=== PATIENT | female | born 1990 | race Caucasian/White ===

== ENCOUNTER 2018-03-22 21:12 | Emergency (ER) | payer BC ==
[2018-03-22] MEDS: METOCLOPRAMIDE 10 MG TAB PO (22:29)
[2018-03-22] MEDS: ACETAMINOPHEN 325 MG TAB PO (22:29)
[2018-03-22 22:33] LABS: URINE BLOOD (Dip) POC Negative (NEGATIVE); URINE GLUCOSE (Dip) POC Negative (NEGATIVE); URINE KETONES (Dip) POC Negative (NEGATIVE); URINE LEUKOCYTE EST (Dip) POC Negative (NEGATIVE); URINE NITRITE (Dip) POC Negative (NEGATIVE); URINE TOTAL PROTEIN POC Negative (NEGATIVE)
[2018-03-22 22:45] LABS: ADD UMIC NO; UR ASCORBIC ACID 40 mg/dL (NEGATIVE); UR BACTERIA FEW /HPF (NONE SEEN); UR BILIRUBIN (Dip) NEGATIVE (NEGATIVE); UR BLOOD (Dip) NEGATIVE (NEGATIVE); UR CLARITY SLIGHTLY CLOUDY (CLEAR); UR COLOR YELLOW (YELLOW); UR GLUCOSE (Dip) NEGATIVE (NEGATIVE); UR KETONES (Dip) NEGATIVE (NEGATIVE); UR LEUKOCYTE ESTERASE (Dip) NEGATIVE Leu/ul (NEGATIVE); UR MUCUS MODERATE /HPF (NONE SEEN); UR NITRITE (Dip) NEGATIVE (NEGATIVE); UR RBC 1 /HPF (0-5); UR SPECIFIC GRAVITY (Dip) 1.017 (1.003-1.030); UR TOTAL PROTEIN (Dip) NEGATIVE (NEGATIVE); UR UROBILINOGEN (Dip) NEGATIVE (NEGATIVE); UR WBC 0 /HPF (0-5)
== END 2018-03-23 00:10 | disposition left against medical advice (07) ==
LOC: FTE 03-23 00:10
DX: O99.89 Other specified diseases and conditions complicating pregnancy, childbirth and the puerperium (principal); R51 Headache; Z3A.11 11 weeks gestation of pregnancy
CPT/HCPCS: 81001; 81003; 81025; 87086; 99283

== ENCOUNTER 2018-05-04 02:39 | Emergency (ER) | payer SELFPAY, BC | END 2018-05-04 02:49 | disposition left against medical advice (07) | LOC: E/R 02:39 | DX: Z53.21 Procedure and treatment not carried out due to patient leaving prior to being seen by health care provider (principal) ==

== ENCOUNTER 2018-05-04 03:38 | Emergency (ER) | payer BC ==
[2018-05-04] MEDS: ACETAMINOPHEN 500 MG TAB PO (04:43)
[2018-05-04 04:54] LABS: ADD UMIC YES; UR AMORPHOUS CRYSTAL FEW /HPF (NONE SEEN); UR ASCORBIC ACID NEGATIVE (NEGATIVE); UR BACTERIA FEW /HPF (NONE SEEN); UR BILIRUBIN (Dip) NEGATIVE (NEGATIVE); UR BLOOD (Dip) NEGATIVE (NEGATIVE); UR CLARITY CLOUDY (CLEAR); UR COLOR YELLOW (YELLOW); UR GLUCOSE (Dip) NEGATIVE (NEGATIVE); UR KETONES (Dip) NEGATIVE (NEGATIVE); UR LEUKOCYTE ESTERASE (Dip) 1+ Leu/ul (NEGATIVE); UR MUCUS FEW /HPF (NONE SEEN); UR NITRITE (Dip) NEGATIVE (NEGATIVE); UR RBC 6 /HPF (0-5); UR SPECIFIC GRAVITY (Dip) 1.025 (1.003-1.030); UR SQUAMOUS EPITHELIAL CELL FEW /HPF (FEW); UR TOTAL PROTEIN (Dip) NEGATIVE (NEGATIVE); UR UROBILINOGEN (Dip) NEGATIVE (NEGATIVE); UR WBC 6 /HPF (0-5)
== END 2018-05-04 05:10 | disposition home or self-care (01) ==
LOC: FTE 03:38
DX: O23.12 Infections of bladder in pregnancy, second trimester (principal); R10.2 Pelvic and perineal pain; Z3A.17 17 weeks gestation of pregnancy
CPT/HCPCS: 76805; 81001; 99284-25

== ENCOUNTER 2018-09-13 18:22 | Inpatient (IN) | payer BC ==
[2018-09-13] MEDS ORDERED: ACETAMINOPHEN 325 MG TAB PO (19:00)
[2018-09-13 19:18] LABS: ADD MAN DIFF? NO
[2018-09-13 19:21] LABS: ABNORMAL IP MESSAGE 1; BASOPHILS % 0.2 % (0.0-2.0); EOSINOPHILS % 0.1 % (0.0-7.0); HEMATOCRIT 32.9 % (37.0-47.0); HEMOGLOBIN 10.7 g/dl (12.0-16.0); LYMPHOCYTES # 0.4 10^3/ul (0.8-2.9); LYMPHOCYTES % 3.7 % (15.0-51.0); MEAN CORPUSCULAR HEMOGLOBIN 28.1 pg (29.0-33.0); MEAN CORPUSCULAR HGB CONC 32.5 g/dl (32.0-37.0); MEAN CORPUSCULAR VOLUME 86.4 fl (82.0-101.0); MEAN PLATELET VOLUME 14.2 fl (7.4-10.4); MONOCYTE # 0.5 10^3/ul (0.3-0.9); MONOCYTES % 4.4 % (0.0-11.0); NEUTROPHIL # 9.6 10^3/ul (1.6-7.5); NEUTROPHILS % 90.8 % (39.0-77.0); PLATELET COUNT 133 10^3/UL (140-415); RED BLOOD COUNT 3.81 10^6/ul (4.20-5.40); RED CELL DISTRIBUTION WIDTH 13.2 % (11.5-14.5)
[2018-09-13 19:21] LABS: WHITE BLOOD COUNT 10.6 10^3/ul (4.8-10.8)
[2018-09-13] MEDS: LACTATED RINGER'S 1,000 ML IV ×2 (19:32→20:10)
[2018-09-13] MEDS: TERBUTALINE 1 MG/ML INJ SC (19:34)
[2018-09-13] MEDS: ACETAMINOPHEN 325 MG TAB PO (19:37)
[2018-09-13 19:40] LABS: ALANINE AMINOTRANSFERASE 46 IU/L (13-69); ALBUMIN 3.5 g/dl (3.3-4.9); ALKALINE PHOSPHATASE 133 IU/L (42-121); ASPARTATE AMINO TRANSFERASE 249 IU/L (15-46); BILIRUBIN,INDIRECT 0.3 mg/dl (0-1.1); BILIRUBIN,TOTAL 0.3 mg/dl (0.2-1.3); TOTAL PROTEIN 6.9 g/dl (6.1-8.1)
[2018-09-13 19:50] LABS: POSITIVE DIFF @See below
[2018-09-13] MEDS: URSODIOL 300 MG CAP PO (22:43)
[2018-09-13] MEDS: CEPASTAT LOZENGE MT (22:45)
[2018-09-13] MEDS: BETAMET NA PHOS/AC(6 MG/ML) 2 ML INJ SYG IM (22:46)
[2018-09-13 23:21] LABS: ADD UMIC YES; UR ASCORBIC ACID NEGATIVE (NEGATIVE); UR BILIRUBIN (Dip) NEGATIVE (NEGATIVE); UR BLOOD (Dip) NEGATIVE (NEGATIVE); UR CLARITY CLEAR (CLEAR); UR COLOR AMBER (YELLOW); UR GLUCOSE (Dip) NEGATIVE (NEGATIVE); UR KETONES (Dip) 2+ mg/dL (NEGATIVE); UR LEUKOCYTE ESTERASE (Dip) NEGATIVE Leu/ul (NEGATIVE); UR MUCUS MODERATE /HPF (NONE SEEN); UR NITRITE (Dip) NEGATIVE (NEGATIVE); UR RBC 0 /HPF (0-5); UR SPECIFIC GRAVITY (Dip) 1.028 (1.003-1.030); UR SQUAMOUS EPITHELIAL CELL FEW /HPF (FEW); UR TOTAL PROTEIN (Dip) 1+ mg/dl (NEGATIVE); UR UROBILINOGEN (Dip) 1+ mg/dL (NEGATIVE); UR WBC 1 /HPF (0-5)
[2018-09-13] MEDS: ACETAMINOPHEN 500 MG TAB PO (23:21)
[2018-09-14] MEDS: OSELTAMIVIR 75 MG CAP PO ×3 (00:35→20:57)
[2018-09-14] MEDS: CEPASTAT LOZENGE MT ×4 (01:55→23:26)
[2018-09-14] MEDS: LACTATED RINGER'S 1,000 ML IV ×5 (01:56→20:45)
[2018-09-14] MEDS: TERBUTALINE 1 MG/ML INJ SC (03:20)
[2018-09-14] MEDS: ACETAMINOPHEN 500 MG TAB PO ×2 (06:02→11:21)
[2018-09-14] MEDS ORDERED: PENICILLIN G K 2,500,000 UNITS in DEXTROSE 5% 50 ML IVPB (06:30)
[2018-09-14] MEDS ORDERED: PENICILLIN G K 5,000,000 UNITS in DEXTROSE 5% 100 ML IVPB (06:30)
[2018-09-14] MEDS ORDERED: CEFAZOLIN 1 GM INJ (07:00)
[2018-09-14 07:24] LABS: ADD MAN DIFF? NO
[2018-09-14 07:26] LABS: ABNORMAL IP MESSAGE 1; BASOPHILS % 0.1 % (0.0-2.0); HEMATOCRIT 26.6 % (37.0-47.0); HEMOGLOBIN 8.7 g/dl (12.0-16.0); LYMPHOCYTES # 0.2 10^3/ul (0.8-2.9); LYMPHOCYTES % 2.8 % (15.0-51.0); MEAN CORPUSCULAR HEMOGLOBIN 28.4 pg (29.0-33.0); MEAN CORPUSCULAR HGB CONC 32.7 g/dl (32.0-37.0); MEAN CORPUSCULAR VOLUME 86.9 fl (82.0-101.0); MEAN PLATELET VOLUME 13.9 fl (7.4-10.4); MONOCYTE # 0.3 10^3/ul (0.3-0.9); MONOCYTES % 3.4 % (0.0-11.0); NEUTROPHIL # 7.3 10^3/ul (1.6-7.5); NEUTROPHILS % 92.7 % (39.0-77.0); PLATELET COUNT 107 10^3/UL (140-415); RED BLOOD COUNT 3.06 10^6/ul (4.20-5.40); RED CELL DISTRIBUTION WIDTH 13.5 % (11.5-14.5)
[2018-09-14 07:26] LABS: WHITE BLOOD COUNT 7.8 10^3/ul (4.8-10.8)
[2018-09-14 07:30] LABS: POSITIVE DIFF @See below
[2018-09-14 07:46] LABS: ALANINE AMINOTRANSFERASE 41 IU/L (13-69); ALBUMIN 2.8 g/dl (3.3-4.9); ALBUMIN/GLOBULIN RATIO 0.93; ALKALINE PHOSPHATASE 129 IU/L (42-121); ANION GAP 10 (5-13); ASPARTATE AMINO TRANSFERASE 179 IU/L (15-46); BILIRUBIN,INDIRECT 0.1 mg/dl (0-1.1); BILIRUBIN,TOTAL 0.1 mg/dl (0.2-1.3); BLOOD UREA NITROGEN 6 mg/dl (7-20); CALCIUM 8.5 mg/dl (8.4-10.2); CARBON DIOXIDE 18 mmol/L (21-31); CHLORIDE 109 mmol/L (97-110); CREATININE 0.37 mg/dl (0.44-1.00); Estimated GFR > 60 mL/min (>60); GLUCOSE 119 mg/dl (70-220); SODIUM 137 mmol/L (135-144); TOTAL PROTEIN 5.8 g/dl (6.1-8.1); URIC ACID 5.9 mg/dl (3.1-7.9)
[2018-09-14] MEDS: URSODIOL 300 MG CAP PO ×2 (08:26→13:00)
[2018-09-14] MEDS: FERROUS SULFATE (EC) 325 MG TAB PO (08:26)
[2018-09-14] MEDS: PRENATAL VITAMIN PO (08:27)
[2018-09-14 09:42] LABS: ADD UMIC YES; UR ASCORBIC ACID NEGATIVE (NEGATIVE); UR BACTERIA FEW /HPF (NONE SEEN); UR BILIRUBIN (Dip) NEGATIVE (NEGATIVE); UR BLOOD (Dip) 1+ mg/dL (NEGATIVE); UR CLARITY CLEAR (CLEAR); UR COLOR YELLOW (YELLOW); UR GLUCOSE (Dip) NEGATIVE (NEGATIVE); UR KETONES (Dip) 2+ mg/dL (NEGATIVE); UR LEUKOCYTE ESTERASE (Dip) NEGATIVE Leu/ul (NEGATIVE); UR NITRITE (Dip) NEGATIVE (NEGATIVE); UR RBC 1 /HPF (0-5); UR TOTAL PROTEIN (Dip) NEGATIVE (NEGATIVE); UR UROBILINOGEN (Dip) NEGATIVE (NEGATIVE); UR WBC 1 /HPF (0-5)
[2018-09-14 11:45] LABS: INR 0.99; PROTIME 13.2 Sec (11.9-14.9)
[2018-09-14 11:46] LABS: PARTIAL THROMBOPLASTIN TIME 30.3 Sec (23.0-35.0)
[2018-09-14] MEDS ORDERED: AMPICILLIN 2 GM/NS (PMX) 100 ML (11:53)
[2018-09-14] MEDS: AMPICILLIN 2 GM/NS (PMX) 100 ML IV (12:00)
[2018-09-14] MEDS ORDERED: OXYCODONE/ASPIRIN (4.88/325) TAB PO (13:00)
[2018-09-14] MEDS ORDERED: BUTORPHANOL 1 MG INJ IV (13:00)
[2018-09-14] MEDS ORDERED: CARBOPROST 250 MCG INJ IM ×3 (13:00→17:30)
[2018-09-14] MEDS ORDERED: OXYTOCIN 30 UNITS/LR 500 ML IV ×4 (13:00→17:30)
[2018-09-14] MEDS ORDERED: BUTORPHANOL 2 MG INJ IV (13:00)
[2018-09-14] MEDS ORDERED: LIDOCAINE 1% (MPF) 30 ML INJ INJ (13:00)
[2018-09-14] MEDS ORDERED: MISOPROSTOL 200 MCG TAB PR ×3 (13:00→17:30)
[2018-09-14] MEDS ORDERED: METHYLERGONOVINE 0.2 MG INJ IM ×3 (13:00→17:30)
[2018-09-14] MEDS ORDERED: IBUPROFEN 600 MG TAB PO (13:00)
[2018-09-14] MEDS ORDERED: FENTAnyl 2MCG/ML-ROPIV 0.2% 100 ML (13:35)
[2018-09-14 13:44] LABS: HEPATITIS B SURFACE ANTIGEN NEGATIVE (NEGATIVE)
[2018-09-14] MEDS ORDERED: NALOXONE (0.4 MG/ML) INJ IV ×2 (14:00→19:00)
[2018-09-14] MEDS ORDERED: FENTAnyl 2MCG/ML-ROPIV 0.2% 100 ML BAG EPI (14:00)
[2018-09-14] MEDS: OXYTOCIN 30 UNITS/LR 500 ML IV ×3 (14:02→23:17)
[2018-09-14 15:17] LABS: RAPID PLASMA REAGIN NONREACTIVE (NR)
[2018-09-14] MEDS: AMPICILLIN 1 GM/NS (PMX) 50 ML IV (16:35)
[2018-09-14] MEDS ORDERED: ACETAMINOPHEN 650 MG SUPP PR (16:38)
[2018-09-14] MEDS: ACETAMINOPHEN 650 MG SUPP PR (16:39)
[2018-09-14] MEDS ORDERED: NACL 0.9% 3 ML SYG IV (17:30)
[2018-09-14] MEDS ORDERED: KETOROLAC 30 MG INJ IV ×2 (17:30→19:00)
[2018-09-14] MEDS ORDERED: LIDOCAINE 2% (SDV) 5 ML INJ (17:53)
[2018-09-14] MEDS ORDERED: AZITHROMYCIN 500MG/NS (PMX) 250 ML (17:59)
[2018-09-14] MEDS ORDERED: ONDANSETRON 4 MG INJ (18:03)
[2018-09-14] MEDS ORDERED: METOCLOPRAMIDE 10 MG INJ ×2 (18:04→18:35)
[2018-09-14] MEDS ORDERED: morphine SULFATE/PF (10 MG/10 ML) INJ (18:17)
[2018-09-14] MEDS ORDERED: OXYTOCIN 10 UNIT INJ (18:19)
[2018-09-14] MEDS ORDERED: MIDAZOLAM 1 MG/ML 2 ML INJ ×2 (18:23→18:33)
[2018-09-14] MEDS ORDERED: LACTATED RINGER'S 1,000 ML IV (18:36)
[2018-09-14] MEDS ORDERED: KETOROLAC 30 MG INJ (18:52)
[2018-09-14] MEDS ORDERED: FENTAnyl 50 MCG/ML VIAL (18:54)
[2018-09-14] MEDS ORDERED: HYDROmorphONE 0.5 MG/0.5 ML SYG IV (19:00)
[2018-09-14] MEDS ORDERED: DIPHENHYDRAMINE 50 MG INJ IV ×2 (19:00)
[2018-09-14] MEDS ORDERED: MIDAZOLAM 1 MG/ML 2 ML INJ IV (19:00)
[2018-09-14] MEDS ORDERED: NALBUPHINE HCL (10 MG/1 ML) INJ IV (19:00)
[2018-09-14] MEDS ORDERED: ONDANSETRON 4 MG INJ IV ×2 (19:00)
[2018-09-14] MEDS ORDERED: EPHEDrine SULFATE 50 MG/5 ML SYG IV (19:00)
[2018-09-14] MEDS ORDERED: ZOLPIDEM 5 MG TAB PO (19:00)
[2018-09-14] MEDS ORDERED: MEPERIDINE 25 MG INJ IV (19:00)
[2018-09-14] MEDS ORDERED: HYDROmorphONE 1 MG/5 ML IV SYRINGE IV ×3 (19:00)
[2018-09-14] MEDS: CEFAZOLIN 2 GM/50 ML (PMX) 50 ML IVPB (19:56)
[2018-09-14] MEDS: HYDROmorphONE 0.5 MG/0.5 ML SYG IV (20:06)
[2018-09-14] MEDS ORDERED: OSELTAMIVIR 75 MG CAP PO (21:00)
[2018-09-14] MEDS: KETOROLAC 30 MG INJ IV (21:50)
[2018-09-15] MEDS: CEPASTAT LOZENGE MT ×2 (03:38→21:06)
[2018-09-15] MEDS: KETOROLAC 30 MG INJ IV ×2 (03:54→08:09)
[2018-09-15] MEDS: LACTATED RINGER'S 1,000 ML IV ×2 (04:45→07:30)
[2018-09-15] MEDS ORDERED: LACTATED RINGER'S 1,000 ML IV (08:00)
[2018-09-15] MEDS: FERROUS SULFATE (EC) 325 MG TAB PO (08:09)
[2018-09-15] MEDS: HYDROCODONE/APAP (5/325) TAB PO ×3 (08:09→22:56)
[2018-09-15 08:10] LABS: ABNORMAL IP MESSAGE 1; ADD MAN DIFF? NO; BASOPHILS % 0.2 % (0.0-2.0); HEMATOCRIT 26.3 % (37.0-47.0); HEMOGLOBIN 8.5 g/dl (12.0-16.0); LYMPHOCYTES # 0.5 10^3/ul (0.8-2.9); LYMPHOCYTES % 7.5 % (15.0-51.0); MEAN CORPUSCULAR HEMOGLOBIN 28.3 pg (29.0-33.0); MEAN CORPUSCULAR HGB CONC 32.3 g/dl (32.0-37.0); MEAN CORPUSCULAR VOLUME 87.7 fl (82.0-101.0); MEAN PLATELET VOLUME 13.7 fl (7.4-10.4); MONOCYTE # 0.2 10^3/ul (0.3-0.9); MONOCYTES % 3.7 % (0.0-11.0); NEUTROPHIL # 5.7 10^3/ul (1.6-7.5); NEUTROPHILS % 87.4 % (39.0-77.0); PLATELET COUNT 106 10^3/UL (140-415); RED CELL DISTRIBUTION WIDTH 13.9 % (11.5-14.5)
[2018-09-15 08:10] LABS: WHITE BLOOD COUNT 6.5 10^3/ul (4.8-10.8)
[2018-09-15 08:15] LABS: POSITIVE DIFF @See below
[2018-09-15 08:38] LABS: ALANINE AMINOTRANSFERASE 64 IU/L (13-69); ALBUMIN 2.4 g/dl (3.3-4.9); ALBUMIN/GLOBULIN RATIO 0.92; ALKALINE PHOSPHATASE 99 IU/L (42-121); ANION GAP 5 (5-13); ASPARTATE AMINO TRANSFERASE 321 IU/L (15-46); BLOOD UREA NITROGEN 9 mg/dl (7-20); CALCIUM 8.2 mg/dl (8.4-10.2); CARBON DIOXIDE 22 mmol/L (21-31); CHLORIDE 109 mmol/L (97-110); CREATININE 0.47 mg/dl (0.44-1.00); Estimated GFR > 60 mL/min (>60); GLUCOSE 100 mg/dl (70-220); SODIUM 136 mmol/L (135-144)
[2018-09-15 08:58] LABS: AADO2 Arterial 594.8 mmHg (7.0-24.0); Arterial Base Excess -1.5 mmol/L (-3.0-3); Arterial Blood Gas Oxygen Sat 95.7 mmHG (95.0-98.0); Arterial COHb 0.3 % (0.0-3.0); Arterial Fraction of Oxyhgb 95.2 % (93.0-99.0); Arterial HCO3 22.5 mmol/L (22.0-26.0); Arterial MetHb 0.2 % (0.0-1.5); Arterial pCO2 34.9 mmhg (35-45); MODE MASK - NRB; Site Right Brachial
[2018-09-15] MEDS: SOD CHLORIDE 0.45% 1,000 ML IV (10:54)
[2018-09-15] MEDS: PRENATAL VITAMIN PO (10:54)
[2018-09-15] MEDS: OSELTAMIVIR 75 MG CAP PO ×2 (11:00→20:09)
[2018-09-15] MEDS: FUROSEMIDE 20 MG INJ IV (12:23)
[2018-09-15] MEDS: ENOXAPARIN 40 MG/0.4 ML SYG SC (12:33)
[2018-09-15] MEDS ORDERED: HYDROCODONE/APAP (5/325) TAB PO (14:00)
[2018-09-15] MEDS: IBUPROFEN 600 MG TAB PO (18:44)
[2018-09-15] MEDS: PSEUDOEPHEDRINE 30 MG TAB PO (21:07)
[2018-09-16] MEDS: IBUPROFEN 600 MG TAB PO ×4 (01:17→17:45)
[2018-09-16] MEDS: CEPASTAT LOZENGE MT ×3 (01:54→20:24)
[2018-09-16] MEDS: HYDROCODONE/APAP (5/325) TAB PO ×2 (04:21→09:15)
[2018-09-16 05:30] LABS: ADD MAN DIFF? NO
[2018-09-16 05:38] LABS: ABNORMAL IP MESSAGE 1; BASOPHILS % 0.2 % (0.0-2.0); EOSINOPHILS % 0.2 % (0.0-7.0); HEMATOCRIT 28.6 % (37.0-47.0); HEMOGLOBIN 9.2 g/dl (12.0-16.0); LYMPHOCYTES # 1.1 10^3/ul (0.8-2.9); LYMPHOCYTES % 20.4 % (15.0-51.0); MEAN CORPUSCULAR HEMOGLOBIN 28.1 pg (29.0-33.0); MEAN CORPUSCULAR HGB CONC 32.2 g/dl (32.0-37.0); MEAN CORPUSCULAR VOLUME 87.5 fl (82.0-101.0); MEAN PLATELET VOLUME 13.7 fl (7.4-10.4); MONOCYTE # 0.2 10^3/ul (0.3-0.9); MONOCYTES % 3.1 % (0.0-11.0); NEUTROPHIL # 4.1 10^3/ul (1.6-7.5); NEUTROPHILS % 74.1 % (39.0-77.0); NUCLEATED RED BLOOD CELLS% 0.5 /100WBC (0.0-0.0); PLATELET COUNT 127 10^3/UL (140-415); RED BLOOD COUNT 3.27 10^6/ul (4.20-5.40)
[2018-09-16 05:38] LABS: WHITE BLOOD COUNT 5.5 10^3/ul (4.8-10.8)
[2018-09-16 05:42] LABS: POSITIVE DIFF @See below
[2018-09-16 06:07] LABS: ALANINE AMINOTRANSFERASE 149 IU/L (13-69); ALBUMIN 2.2 g/dl (3.3-4.9); ALKALINE PHOSPHATASE 103 IU/L (42-121); TOTAL PROTEIN 4.6 g/dl (6.1-8.1)
[2018-09-16 06:14] LABS: ALANINE AMINOTRANSFERASE 147 IU/L (13-69); ALBUMIN 2.2 g/dl (3.3-4.9); ALBUMIN/GLOBULIN RATIO 0.84; ALKALINE PHOSPHATASE 94 IU/L (42-121); ANION GAP 8 (5-13); BLOOD UREA NITROGEN 13 mg/dl (7-20); CARBON DIOXIDE 24 mmol/L (21-31); CHLORIDE 109 mmol/L (97-110); Estimated GFR > 60 mL/min (>60); GLUCOSE 75 mg/dl (70-220); POTASSIUM 3.9 mmol/L (3.5-5.1); SODIUM 141 mmol/L (135-144); TOTAL PROTEIN 4.8 g/dl (6.1-8.1)
[2018-09-16 06:17] LABS: MAGNESIUM 1.7 mg/dl (1.7-2.5)
[2018-09-16 06:17] LABS: PHOSPHORUS 4.7 mg/dl (2.5-4.9)
[2018-09-16] MEDS: PRENATAL VITAMIN PO (08:48)
[2018-09-16] MEDS: FERROUS SULFATE (EC) 325 MG TAB PO (08:49)
[2018-09-16] MEDS: OSELTAMIVIR 75 MG CAP PO ×2 (08:49→20:20)
[2018-09-16] MEDS: ENOXAPARIN 40 MG/0.4 ML SYG SC (08:52)
[2018-09-16] MEDS ORDERED: NALOXONE (0.4 MG/ML) INJ IV (10:30)
[2018-09-16] MEDS ORDERED: DIPHENHYDRAMINE 50 MG INJ IV (10:30)
[2018-09-16] MEDS ORDERED: ACETAMINOPHEN 500 MG TAB PO (10:30)
[2018-09-16] MEDS ORDERED: ONDANSETRON 4 MG INJ IV (10:30)
[2018-09-16] MEDS ORDERED: ZOLPIDEM 5 MG TAB PO (10:30)
[2018-09-16] MEDS: HYDROmorphONE 1 MG/ML SYG IV ×4 (11:10→21:14)
[2018-09-16 13:23] LABS: ASPARTATE AMINO TRANSFERASE 761 IU/L (15-46)
[2018-09-16 13:25] LABS: ASPARTATE AMINO TRANSFERASE 783 IU/L (15-46)
[2018-09-16 14:17] LABS: LIPASE 187 U/L (23-300)
[2018-09-16 14:17] LABS: AMYLASE 90 U/L (11-123)
[2018-09-16] MEDS: SOD CHLORIDE 0.9% 100 ML (14:50)
[2018-09-16] MEDS: IOHEXOL 300MG/ML 150 ML BTL (14:50)
[2018-09-16] MEDS: PSEUDOEPHEDRINE 30 MG TAB PO (20:24)
[2018-09-17] MEDS: IBUPROFEN 600 MG TAB PO ×4 (00:57→20:18)
[2018-09-17] MEDS: HYDROmorphONE 1 MG/ML SYG IV ×5 (01:06→22:12)
[2018-09-17] MEDS: CEPASTAT LOZENGE MT ×2 (03:29→22:24)
[2018-09-17 06:36] LABS: ADD MAN DIFF? NO
[2018-09-17 06:41] LABS: WHITE BLOOD COUNT 7.8 10^3/ul (4.8-10.8)
[2018-09-17 06:41] LABS: ABNORMAL IP MESSAGE 1; BASOPHILS % 0.3 % (0.0-2.0); EOSINOPHILS % 0.3 % (0.0-7.0); HEMATOCRIT 31.9 % (37.0-47.0); HEMOGLOBIN 10.3 g/dl (12.0-16.0); LYMPHOCYTES # 1.3 10^3/ul (0.8-2.9); LYMPHOCYTES % 16.9 % (15.0-51.0); MEAN CORPUSCULAR HEMOGLOBIN 28.3 pg (29.0-33.0); MEAN CORPUSCULAR HGB CONC 32.3 g/dl (32.0-37.0); MEAN CORPUSCULAR VOLUME 87.6 fl (82.0-101.0); MEAN PLATELET VOLUME 13.1 fl (7.4-10.4); MONOCYTE # 0.3 10^3/ul (0.3-0.9); NEUTROPHILS % 77.1 % (39.0-77.0); NUCLEATED RED BLOOD CELLS # 0.1 10^3/ul (0.0-0.0); NUCLEATED RED BLOOD CELLS% 0.9 /100WBC (0.0-0.0); PLATELET COUNT 166 10^3/UL (140-415); RED BLOOD COUNT 3.64 10^6/ul (4.20-5.40); RED CELL DISTRIBUTION WIDTH 13.7 % (11.5-14.5)
[2018-09-17 06:59] LABS: POSITIVE DIFF @See below
[2018-09-17 07:03] LABS: AMMONIA 15 umol/l (9-30)
[2018-09-17 07:04] LABS: INR 0.83; PROTIME 11.5 Sec (11.9-14.9); PT RATIO 0.9
[2018-09-17 07:05] LABS: PARTIAL THROMBOPLASTIN TIME 36.5 Sec (23.0-35.0)
[2018-09-17 07:17] LABS: ALANINE AMINOTRANSFERASE 120 IU/L (13-69); ALBUMIN 2.4 g/dl (3.3-4.9); ALBUMIN/GLOBULIN RATIO 0.92; ALKALINE PHOSPHATASE 115 IU/L (42-121); AMYLASE 72 U/L (11-123); ANION GAP 5 (5-13); ASPARTATE AMINO TRANSFERASE 459 IU/L (15-46); BLOOD UREA NITROGEN 11 mg/dl (7-20); CARBON DIOXIDE 24 mmol/L (21-31); CHLORIDE 109 mmol/L (97-110); CREATININE 0.45 mg/dl (0.44-1.00); Estimated GFR > 60 mL/min (>60); GLUCOSE 76 mg/dl (70-220); LIPASE 125 U/L (23-300); POTASSIUM 3.7 mmol/L (3.5-5.1); SODIUM 138 mmol/L (135-144)
[2018-09-17 07:18] LABS: MAGNESIUM 1.7 mg/dl (1.7-2.5)
[2018-09-17 07:52] LABS: HEPATITIS B SURFACE ANTIBODY NEGATIVE (NEGATIVE); HEPATITIS C VIRAL ANTIBODY NEGATIVE (NEGATIVE)
[2018-09-17] MEDS: FERROUS SULFATE (EC) 325 MG TAB PO (08:51)
[2018-09-17] MEDS: PRENATAL VITAMIN PO (08:51)
[2018-09-17] MEDS: FUROSEMIDE 20 MG INJ IV (08:52)
[2018-09-17] MEDS: OSELTAMIVIR 75 MG CAP PO ×2 (08:52→20:18)
[2018-09-17 08:57] LABS: HEPATITIS B CORE ANTIBODY NEGATIVE (NEGATIVE)
[2018-09-17] MEDS: ENOXAPARIN 40 MG/0.4 ML SYG SC (09:04)
[2018-09-17] MEDS: DOCUSATE SODIUM 100 MG CAP PO ×2 (14:00→20:28)
[2018-09-18] MEDS: IBUPROFEN 600 MG TAB PO ×4 (00:13→17:54)
[2018-09-18] MEDS: HYDROmorphONE 1 MG/ML SYG IV ×2 (01:22→08:17)
[2018-09-18 05:21] LABS: ADD MAN DIFF? NO
[2018-09-18 05:24] LABS: BASOPHILS % 0.1 % (0.0-2.0); EOSINOPHILS % 0.1 % (0.0-7.0); HEMATOCRIT 31.1 % (37.0-47.0); HEMOGLOBIN 10.3 g/dl (12.0-16.0); LYMPHOCYTES # 1.3 10^3/ul (0.8-2.9); LYMPHOCYTES % 18.5 % (15.0-51.0); MEAN CORPUSCULAR HEMOGLOBIN 28.5 pg (29.0-33.0); MEAN CORPUSCULAR HGB CONC 33.1 g/dl (32.0-37.0); MEAN CORPUSCULAR VOLUME 85.9 fl (82.0-101.0); MEAN PLATELET VOLUME 12.2 fl (7.4-10.4); MONOCYTE # 0.4 10^3/ul (0.3-0.9); MONOCYTES % 5.3 % (0.0-11.0); NEUTROPHIL # 5.2 10^3/ul (1.6-7.5); NEUTROPHILS % 74.1 % (39.0-77.0); NUCLEATED RED BLOOD CELLS # 0.1 10^3/ul (0.0-0.0); NUCLEATED RED BLOOD CELLS% 0.7 /100WBC (0.0-0.0); PLATELET COUNT 196 10^3/UL (140-415); RED BLOOD COUNT 3.62 10^6/ul (4.20-5.40); RED CELL DISTRIBUTION WIDTH 13.8 % (11.5-14.5)
[2018-09-18 05:45] LABS: ALANINE AMINOTRANSFERASE 94 IU/L (13-69); ALBUMIN 2.7 g/dl (3.3-4.9); ALBUMIN/GLOBULIN RATIO 0.93; ALKALINE PHOSPHATASE 105 IU/L (42-121); ANION GAP 8 (5-13); ASPARTATE AMINO TRANSFERASE 279 IU/L (15-46); BILIRUBIN,INDIRECT 0.1 mg/dl (0-1.1); BILIRUBIN,TOTAL 0.1 mg/dl (0.2-1.3); BLOOD UREA NITROGEN 9 mg/dl (7-20); CARBON DIOXIDE 26 mmol/L (21-31); CHLORIDE 106 mmol/L (97-110); CREATININE 0.45 mg/dl (0.44-1.00); Estimated GFR > 60 mL/min (>60); GLUCOSE 82 mg/dl (70-220); POTASSIUM 3.6 mmol/L (3.5-5.1); SODIUM 140 mmol/L (135-144); TOTAL PROTEIN 5.6 g/dl (6.1-8.1)
[2018-09-18] MEDS: FERROUS SULFATE (EC) 325 MG TAB PO (08:16)
[2018-09-18] MEDS: PRENATAL VITAMIN PO (08:16)
[2018-09-18] MEDS: OSELTAMIVIR 75 MG CAP PO (08:16)
[2018-09-18] MEDS: FUROSEMIDE 20 MG INJ IV (08:16)
[2018-09-18] MEDS: DOCUSATE SODIUM 100 MG CAP PO (08:19)
[2018-09-18] MEDS: ENOXAPARIN 40 MG/0.4 ML SYG SC (08:21)
[2018-09-18 12:37] LABS: ANA SCREEN NEGATIVE (NEGATIVE); MITOCHONDRIAL TB NEGATIVE (NEGATIVE); SMOOTH MUSCLE AB SCREEN NEGATIVE (NEGATIVE)
[2018-09-20 10:53] LABS: CHENODEOXYCHOLIC ACID 4.7 umol/L (< OR = 3.1); CHOLIC ACID 7.7 umol/L (< OR = 1.8); DEOXYCHOLIC ACID 1.6 umol/L (< OR = 2.4); TOTAL BILE ACIDS 14.1 umol/L (< OR = 6.8)
== END 2018-09-18 19:24 | disposition home or self-care (01) | DRG 783 ==
LOC: OBT 18:22 → L-D 09-14 01:38 → PP1 09-14 02:11 → ICU 09-15 08:02 → L-D 09-14 02:13 → OBT 21:15 → L-D 09-14 12:24 → PP1 09-14 22:06
PROC: 3E033VJ Introduction of Other Hormone into Peripheral Vein, Percutaneous Approach (ICD-10-PCS; 2018-09-13)
PROC: 10D00Z1 Extraction of Products of Conception, Low, Open Approach (ICD-10-PCS; principal; 2018-09-15)
PROC: 0UL70CZ Occlusion of Bilateral Fallopian Tubes with Extraluminal Device, Open Approach (ICD-10-PCS; 2018-09-15)
DX: O26.613 Liver and biliary tract disorders in pregnancy, third trimester (principal); K83.1 Obstruction of bile duct; J96.01 Acute respiratory failure with hypoxia; J10.08 Influenza due to other identified influenza virus with other specified pneumonia; J12.89 Other viral pneumonia; O99.113 Other diseases of the blood and blood-forming organs and certain disorders involving the immune mechanism complicating pregnancy, third trimester; O99.53 Diseases of the respiratory system complicating the puerperium; O76 Abnormality in fetal heart rate and rhythm complicating labor and delivery; Z3A.36 36 weeks gestation of pregnancy; Z37.0 Single live birth; Z30.2 Encounter for sterilization; O99.513 Diseases of the respiratory system complicating pregnancy, third trimester; O26.893 Other specified pregnancy related conditions, third trimester; R00.0 Tachycardia, unspecified; O90.81 Anemia of the puerperium; N13.9 Obstructive and reflux uropathy, unspecified; O99.89 Other specified diseases and conditions complicating pregnancy, childbirth and the puerperium
CPT/HCPCS: 36415; 36600; 71045; 74177; 76705; 76818; 78226; 80053; 80076; 81001; 82140; 82150; 82803; 83605; 83690; 83735; 83789; 84100; 84560; 85025; 85384; 85610; 85730; 86038; 86255; 86592; 86704; 86706; 86803; 86850; 86900; 86901; 86920; 87081; 87086; 87340; 87400; 88302; 93306; 96372; 99464

== ENCOUNTER 2018-09-22 04:52 | Inpatient (IN) | payer BC ==
[2018-09-22 05:37] LABS: ADD MAN DIFF? NO
[2018-09-22 05:38] LABS: BASOPHILS % 0.4 % (0.0-2.0); EOSINOPHILS # 0.1 10^3/ul (0.0-0.5); EOSINOPHILS % 1.5 % (0.0-7.0); HEMATOCRIT 37.3 % (37.0-47.0); HEMOGLOBIN 11.8 g/dl (12.0-16.0); LYMPHOCYTES # 2.6 10^3/ul (0.8-2.9); LYMPHOCYTES % 32.8 % (15.0-51.0); MEAN CORPUSCULAR HEMOGLOBIN 27.7 pg (29.0-33.0); MEAN CORPUSCULAR HGB CONC 31.6 g/dl (32.0-37.0); MEAN CORPUSCULAR VOLUME 87.6 fl (82.0-101.0); MEAN PLATELET VOLUME 11.1 fl (7.4-10.4); MONOCYTE # 0.7 10^3/ul (0.3-0.9); MONOCYTES % 8.5 % (0.0-11.0); NEUTROPHIL # 4.3 10^3/ul (1.6-7.5); NEUTROPHILS % 55.1 % (39.0-77.0); NUCLEATED RED BLOOD CELLS% 0.3 /100WBC (0.0-0.0); PLATELET COUNT 374 10^3/UL (140-415); RED BLOOD COUNT 4.26 10^6/ul (4.20-5.40); RED CELL DISTRIBUTION WIDTH 14.1 % (11.5-14.5)
[2018-09-22 05:38] LABS: WHITE BLOOD COUNT 7.8 10^3/ul (4.8-10.8)
[2018-09-22] MEDS: SOD CHLORIDE 0.9% 1,000 ML IV ×3 (05:42→21:21)
[2018-09-22] MEDS: ONDANSETRON 4 MG INJ IV (05:42)
[2018-09-22] MEDS: KETOROLAC 15 MG INJ IV (05:42)
[2018-09-22] MEDS: morphine 4 MG/ML VIAL IV (05:43)
[2018-09-22 05:57] LABS: INR 0.89; PROTIME 12.2 Sec (11.9-14.9)
[2018-09-22 05:58] LABS: PARTIAL THROMBOPLASTIN TIME 29.1 Sec (23.0-35.0)
[2018-09-22 06:05] LABS: ANION GAP 6 (5-13); BLOOD UREA NITROGEN 9 mg/dl (7-20); CARBON DIOXIDE 24 mmol/L (21-31); CHLORIDE 112 mmol/L (97-110); CREATININE 0.46 mg/dl (0.44-1.00); Estimated GFR > 60 mL/min (>60); GLUCOSE 95 mg/dl (70-220); POTASSIUM 3.9 mmol/L (3.5-5.1); SODIUM 142 mmol/L (135-144)
[2018-09-22 06:18] LABS: B-TYPE NATRIURETIC PEPTIDE 679 PG/ML (0-125)
[2018-09-22 06:28] LABS: TROPONIN-I 0.467 ng/ml (0.000-0.120)
[2018-09-22] MEDS ORDERED: ACETAMINOPHEN 325 MG TAB PO ×2 (07:00→07:30)
[2018-09-22] MEDS ORDERED: ONDANSETRON 4 MG INJ IV ×2 (07:00→07:30)
[2018-09-22] MEDS: ENOXAPARIN 80 MG/0.8 ML SYG SC ×2 (07:02→07:18)
[2018-09-22] MEDS ORDERED: BISACODYL (EC) 5 MG TAB PO (07:30)
[2018-09-22] MEDS ORDERED: NITROGLYCERIN (SL) 0.4 MG TAB SL (07:30)
[2018-09-22] MEDS ORDERED: NACL 0.9% 3 ML SYG IV (07:30)
[2018-09-22] MEDS ORDERED: DOCUSATE SODIUM 100 MG CAP PO (07:30)
[2018-09-22] MEDS: SOD CHLORIDE 0.9% 100 ML (07:52)
[2018-09-22] MEDS: IOHEXOL 100 ML (07:52)
[2018-09-22] MEDS: ASPIRIN 81 MG TAB PO (09:05)
[2018-09-22 09:42] LABS: CREATINE KINASE 110 IU/L (23-200)
[2018-09-22 09:55] LABS: CK INDEX 3.7; CK-MB 4.06 ng/ml (0.0-2.4)
[2018-09-22 10:47] LABS: ALANINE AMINOTRANSFERASE 55 IU/L (13-69); ALBUMIN 3.1 g/dl (3.3-4.9); ALKALINE PHOSPHATASE 91 IU/L (42-121); ASPARTATE AMINO TRANSFERASE 77 IU/L (15-46); BILIRUBIN,INDIRECT 0.2 mg/dl (0-1.1); BILIRUBIN,TOTAL 0.2 mg/dl (0.2-1.3); TOTAL PROTEIN 6.4 g/dl (6.1-8.1)
[2018-09-22] MEDS: IBUPROFEN 800 MG TAB PO ×3 (12:12→21:22)
[2018-09-22] MEDS: COLCHICINE 0.6 MG TAB PO ×2 (12:13→21:22)
[2018-09-22] MEDS: morphine 2 MG INJ IV ×2 (14:12→21:24)
[2018-09-22] MEDS: KETOROLAC 30 MG INJ IV (16:22)
[2018-09-22 16:34] LABS: CREATINE KINASE 100 IU/L (23-200)
[2018-09-22 16:48] LABS: CK INDEX 2.8; CK-MB 2.82 ng/ml (0.0-2.4)
[2018-09-22] MEDS ORDERED: ENOXAPARIN 80 MG/0.8 ML SYG SC (21:00)
[2018-09-22] MEDS: FAMOTIDINE 20 MG TAB PO (21:22)
[2018-09-23] MEDS: morphine 2 MG INJ IV ×2 (04:03→21:35)
[2018-09-23 05:21] LABS: ADD MAN DIFF? NO
[2018-09-23 05:25] LABS: WHITE BLOOD COUNT 5.9 10^3/ul (4.8-10.8)
[2018-09-23 05:25] LABS: BASOPHILS % 0.3 % (0.0-2.0); EOSINOPHILS # 0.1 10^3/ul (0.0-0.5); HEMATOCRIT 31.7 % (37.0-47.0); LYMPHOCYTES # 2.4 10^3/ul (0.8-2.9); LYMPHOCYTES % 39.6 % (15.0-51.0); MEAN CORPUSCULAR HEMOGLOBIN 28.1 pg (29.0-33.0); MEAN CORPUSCULAR HGB CONC 31.5 g/dl (32.0-37.0); MEAN PLATELET VOLUME 11.4 fl (7.4-10.4); MONOCYTE # 0.6 10^3/ul (0.3-0.9); MONOCYTES % 9.9 % (0.0-11.0); NEUTROPHIL # 2.8 10^3/ul (1.6-7.5); NEUTROPHILS % 46.5 % (39.0-77.0); PLATELET COUNT 340 10^3/UL (140-415); RED BLOOD COUNT 3.56 10^6/ul (4.20-5.40); RED CELL DISTRIBUTION WIDTH 14.4 % (11.5-14.5)
[2018-09-23 05:34] LABS: HEMOGLOBIN A1C 5.2 % (0-5.9)
[2018-09-23 05:44] LABS: CHOL/HDL RATIO 8.1 RATIO; CHOLESTEROL 187 mg/dl (100-200); HDL CHOLESTEROL 23 mg/dl (34-82); LDL CHOLESTEROL,CALCULATED 99 mg/dl; MAGNESIUM 2.1 mg/dl (1.7-2.5); TRIGLYCERIDES 325 mg/dl (0-149)
[2018-09-23 05:44] LABS: PHOSPHORUS 3.4 mg/dl (2.5-4.9)
[2018-09-23 05:47] LABS: ALANINE AMINOTRANSFERASE 44 IU/L (13-69); ALBUMIN 2.9 g/dl (3.3-4.9); ALBUMIN/GLOBULIN RATIO 0.96; ALKALINE PHOSPHATASE 85 IU/L (42-121); ANION GAP 7 (5-13); ASPARTATE AMINO TRANSFERASE 80 IU/L (15-46); BILIRUBIN,INDIRECT 0.2 mg/dl (0-1.1); BILIRUBIN,TOTAL 0.2 mg/dl (0.2-1.3); BLOOD UREA NITROGEN 9 mg/dl (7-20); CALCIUM 8.2 mg/dl (8.4-10.2); CARBON DIOXIDE 22 mmol/L (21-31); CHLORIDE 115 mmol/L (97-110); CREATININE 0.41 mg/dl (0.44-1.00); Estimated GFR > 60 mL/min (>60); GLUCOSE 78 mg/dl (70-220); POTASSIUM 3.9 mmol/L (3.5-5.1); SODIUM 144 mmol/L (135-144); TOTAL PROTEIN 5.9 g/dl (6.1-8.1)
[2018-09-23] MEDS: COLCHICINE 0.6 MG TAB PO ×2 (08:35→20:50)
[2018-09-23] MEDS: IBUPROFEN 800 MG TAB PO ×3 (08:35→20:50)
[2018-09-23] MEDS: FAMOTIDINE 20 MG TAB PO ×2 (08:35→20:50)
[2018-09-23] MEDS: SOD CHLORIDE 0.9% 1,000 ML IV (08:39)
[2018-09-23] MEDS: NITROGLYCERIN AEROSOL (4.9 GM) (11:49)
[2018-09-23] MEDS: SOD CHLORIDE 0.9% 100 ML (11:52)
[2018-09-23] MEDS: IOHEXOL 100 ML (11:52)
[2018-09-23 12:09] LABS: C-REACTIVE PROTEIN 1.1 mg/dl (0.0-0.9)
[2018-09-23 12:57] LABS: ERYTHROCYTE SEDIMENTATION RATE 49 mm/Hr (0-20)
[2018-09-23] MEDS: KETOROLAC 30 MG INJ IV (17:28)
[2018-09-23 20:10] LABS: ADD UMIC YES; UR ASCORBIC ACID NEGATIVE (NEGATIVE); UR BACTERIA FEW /HPF (NONE SEEN); UR BILIRUBIN (Dip) NEGATIVE (NEGATIVE); UR BLOOD (Dip) 3+ mg/dL (NEGATIVE); UR CLARITY SLIGHTLY CLOUDY (CLEAR); UR COLOR YELLOW (YELLOW); UR GLUCOSE (Dip) NEGATIVE (NEGATIVE); UR KETONES (Dip) TRACE mg/dL (NEGATIVE); UR LEUKOCYTE ESTERASE (Dip) 3+ Leu/ul (NEGATIVE); UR MUCUS FEW /HPF (NONE SEEN); UR NITRITE (Dip) NEGATIVE (NEGATIVE); UR RBC > 182 /HPF (0-5); UR SPECIFIC GRAVITY (Dip) 1.042 (1.003-1.030); UR TOTAL PROTEIN (Dip) 1+ mg/dl (NEGATIVE); UR UROBILINOGEN (Dip) 2+ mg/dL (NEGATIVE); UR WBC > 182 /HPF (0-5)
[2018-09-24] MEDS: morphine 2 MG INJ IV (04:01)
[2018-09-24 05:15] LABS: ADD MAN DIFF? NO
[2018-09-24 05:18] LABS: BASOPHILS % 0.3 % (0.0-2.0); EOSINOPHILS # 0.1 10^3/ul (0.0-0.5); EOSINOPHILS % 1.6 % (0.0-7.0); HEMOGLOBIN 10.5 g/dl (12.0-16.0); LYMPHOCYTES # 1.9 10^3/ul (0.8-2.9); LYMPHOCYTES % 21.5 % (15.0-51.0); MEAN CORPUSCULAR HEMOGLOBIN 27.9 pg (29.0-33.0); MEAN CORPUSCULAR HGB CONC 31.8 g/dl (32.0-37.0); MEAN CORPUSCULAR VOLUME 87.5 fl (82.0-101.0); MEAN PLATELET VOLUME 11.2 fl (7.4-10.4); MONOCYTE # 0.9 10^3/ul (0.3-0.9); MONOCYTES % 9.5 % (0.0-11.0); NEUTROPHIL # 5.9 10^3/ul (1.6-7.5); NEUTROPHILS % 66.1 % (39.0-77.0); PLATELET COUNT 374 10^3/UL (140-415); RED BLOOD COUNT 3.77 10^6/ul (4.20-5.40); RED CELL DISTRIBUTION WIDTH 14.3 % (11.5-14.5)
[2018-09-24 05:39] LABS: ALANINE AMINOTRANSFERASE 41 IU/L (13-69); ALBUMIN 3.2 g/dl (3.3-4.9); ALBUMIN/GLOBULIN RATIO 1.06; ALKALINE PHOSPHATASE 87 IU/L (42-121); ANION GAP 7 (5-13); ASPARTATE AMINO TRANSFERASE 59 IU/L (15-46); BILIRUBIN,INDIRECT 0.3 mg/dl (0-1.1); BILIRUBIN,TOTAL 0.3 mg/dl (0.2-1.3); BLOOD UREA NITROGEN 10 mg/dl (7-20); CALCIUM 8.8 mg/dl (8.4-10.2); CARBON DIOXIDE 22 mmol/L (21-31); CHLORIDE 112 mmol/L (97-110); CREATININE 0.44 mg/dl (0.44-1.00); Estimated GFR > 60 mL/min (>60); GLUCOSE 87 mg/dl (70-220); POTASSIUM 3.8 mmol/L (3.5-5.1); SODIUM 141 mmol/L (135-144); TOTAL PROTEIN 6.2 g/dl (6.1-8.1)
[2018-09-24] MEDS: IBUPROFEN 800 MG TAB PO ×2 (08:31→13:00)
[2018-09-24] MEDS: FAMOTIDINE 20 MG TAB PO (08:31)
[2018-09-24] MEDS: COLCHICINE 0.6 MG TAB PO (08:31)
== END 2018-09-24 14:50 | disposition home or self-care (01) | DRG 776 ==
LOC: E/R 04:52 → ICU 06:54
DX: O90.89 Other complications of the puerperium, not elsewhere classified (principal); I30.1 Infective pericarditis
CPT/HCPCS: 36415; 71275; 75574; 80048; 80053; 80061; 80076; 81001; 82550; 82553; 83036; 83735; 83880; 84100; 84484; 85025; 85610; 85651; 85730; 86140; 87081; 87086; 93005; 93306; 96374; 96375; 99285-25

== ENCOUNTER 2019-02-26 04:05 | Emergency (ER) | payer BC ==
[2019-02-26 05:08] LABS: URINE PH (Dip) POC 7.5 (5.0-8.5)
[2019-02-26 05:08] LABS: URINE BLOOD (Dip) POC Negative (NEGATIVE); URINE GLUCOSE (Dip) POC Negative (NEGATIVE); URINE KETONES (Dip) POC Negative (NEGATIVE); URINE LEUKOCYTE EST (Dip) POC Negative (NEGATIVE); URINE NITRITE (Dip) POC Negative (NEGATIVE); URINE TOTAL PROTEIN POC 1+ (NEGATIVE)
[2019-02-26 05:20] LABS: ADD MAN DIFF? NO
[2019-02-26 05:22] LABS: WHITE BLOOD COUNT 7.8 10^3/ul (4.8-10.8)
[2019-02-26 05:22] LABS: BASOPHILS % 0.4 % (0.0-2.0); EOSINOPHILS # 0.2 10^3/ul (0.0-0.5); EOSINOPHILS % 2.8 % (0.0-7.0); HEMATOCRIT 39.4 % (37.0-47.0); LYMPHOCYTES # 2.7 10^3/ul (0.8-2.9); LYMPHOCYTES % 34.4 % (15.0-51.0); MEAN CORPUSCULAR HEMOGLOBIN 29.1 pg (29.0-33.0); MEAN CORPUSCULAR VOLUME 88.1 fl (82.0-101.0); MEAN PLATELET VOLUME 11.7 fl (7.4-10.4); MONOCYTE # 0.7 10^3/ul (0.3-0.9); MONOCYTES % 8.8 % (0.0-11.0); NEUTROPHIL # 4.2 10^3/ul (1.6-7.5); NEUTROPHILS % 53.3 % (39.0-77.0); PLATELET COUNT 220 10^3/UL (140-415); RED BLOOD COUNT 4.47 10^6/ul (4.20-5.40); RED CELL DISTRIBUTION WIDTH 13.3 % (11.5-14.5)
[2019-02-26] MEDS ORDERED: LIDOCAINE/MYLANTA 40 ML BTL PO (05:30)
[2019-02-26] MEDS: LIDOCAINE/MYLANTA 40 ML BTL PO (05:36)
[2019-02-26 05:41] LABS: INR 0.94; PROTIME 12.7 Sec (11.9-14.9)
[2019-02-26 05:42] LABS: PARTIAL THROMBOPLASTIN TIME 27.8 Sec (23.0-35.0)
[2019-02-26 05:51] LABS: ADD UMIC YES; UR AMORPHOUS CRYSTAL MANY /HPF (NONE SEEN); UR ASCORBIC ACID NEGATIVE (NEGATIVE); UR BILIRUBIN (Dip) NEGATIVE (NEGATIVE); UR BLOOD (Dip) NEGATIVE (NEGATIVE); UR CLARITY TURBID (CLEAR); UR COLOR YELLOW (YELLOW); UR GLUCOSE (Dip) NEGATIVE (NEGATIVE); UR KETONES (Dip) NEGATIVE (NEGATIVE); UR LEUKOCYTE ESTERASE (Dip) NEGATIVE Leu/ul (NEGATIVE); UR MUCUS MANY /HPF (NONE SEEN); UR NITRITE (Dip) NEGATIVE (NEGATIVE); UR RBC 3 /HPF (0-5); UR SPECIFIC GRAVITY (Dip) 1.023 (1.003-1.030); UR SQUAMOUS EPITHELIAL CELL FEW /HPF (FEW); UR TOTAL PROTEIN (Dip) NEGATIVE (NEGATIVE); UR UROBILINOGEN (Dip) NEGATIVE (NEGATIVE); UR WBC 1 /HPF (0-5)
[2019-02-26 05:52] LABS: ALANINE AMINOTRANSFERASE 37 IU/L (13-69); ALBUMIN 4.5 g/dl (3.3-4.9); ALKALINE PHOSPHATASE 59 IU/L (42-121); ANION GAP 11 (5-13); ASPARTATE AMINO TRANSFERASE 23 IU/L (15-46); BILIRUBIN,INDIRECT 0.7 mg/dl (0-1.1); BILIRUBIN,TOTAL 0.7 mg/dl (0.2-1.3); BLOOD UREA NITROGEN 10 mg/dl (7-20); CALCIUM 9.9 mg/dl (8.4-10.2); CARBON DIOXIDE 28 mmol/L (21-31); CHLORIDE 106 mmol/L (97-110); CREATININE 0.52 mg/dl (0.44-1.00); Estimated GFR > 60 mL/min (>60); GLUCOSE 97 mg/dl (70-220); LIPASE 132 U/L (23-300); POTASSIUM 3.9 mmol/L (3.5-5.1); SODIUM 145 mmol/L (135-144); TOTAL PROTEIN 7.7 g/dl (6.1-8.1)
== END 2019-02-26 06:35 | disposition home or self-care (01) ==
LOC: FTE 04:05
DX: R10.11 Right upper quadrant pain (principal); R14.0 Abdominal distension (gaseous)
CPT/HCPCS: 36415; 71045; 76705; 80053; 81001; 81003; 83690; 85025; 85610; 85730; 93005; 99285-25

== ENCOUNTER 2019-03-09 18:28 | Emergency (ER) | payer BC | END 2019-03-09 20:24 | disposition home or self-care (01) | LOC: FTE 18:28 | DX: S91.311A Laceration without foreign body, right foot, initial encounter (principal); W22.8XXA Striking against or struck by other objects, initial encounter; Y92.9 Unspecified place or not applicable | CPT/HCPCS: 12002; 99282-25 ==